=== PATIENT | female | born 1940 | race Caucasian/White ===

== ENCOUNTER → 2019-03-07 | Outpatient (CLI) | payer MEDICARE ==
[~2019-03-07] MED LIST: AMLO5TAB9 PO; ASPI-555 PO; CALC600T12 PO; CHOL200074 PO; METO-408 PO; ROSU10TA28 PO
== END | disposition home or self-care (01) ==
LOC: RAH 14:00
PROVIDERS: ATTEND Nurse Practitioner Adult Health
DX: Z12.31 Encounter for screening mammogram for malignant neoplasm of breast (principal)
CPT/HCPCS: 77067

== ENCOUNTER → 2021-01-29 | Outpatient (CLI) | payer MEDICARE ==
[~2021-01-29] MED LIST changes: +AMLO-257 PO; -AMLO5TAB9 PO; -ASPI-555 PO; +ASPI-556 PO; +CALC-1125 PO; -CALC600T12 PO
== END | disposition home or self-care (01) ==
LOC: RAH 13:00
PROVIDERS: ATTEND Nurse Practitioner Adult Health
DX: Z12.31 Encounter for screening mammogram for malignant neoplasm of breast (principal)
CPT/HCPCS: 77067

== ENCOUNTER → 2021-02-06 | Outpatient (CLI) | payer MEDICARE | END | disposition home or self-care (01) | LOC: RAH 12:11 | PROVIDERS: ATTEND Nurse Practitioner Adult Health | DX: R06.02 Shortness of breath (principal) | CPT/HCPCS: 71046 ==

== ENCOUNTER → 2022-04-14 | Outpatient (CLI) | payer MEDICARE | END | disposition home or self-care (01) | LOC: RAH 14:48 | PROVIDERS: ATTEND Nurse Practitioner Adult Health | DX: Z12.31 Encounter for screening mammogram for malignant neoplasm of breast (principal) | CPT/HCPCS: 77067 ==

== ENCOUNTER → 2023-08-31 | Outpatient (CLI) | payer MEDICARE | END | disposition home or self-care (01) | LOC: RAH 15:05 | PROVIDERS: ATTEND Nurse Practitioner Adult Health | DX: R07.81 Pleurodynia (principal); M19.09 Primary osteoarthritis, other specified site | CPT/HCPCS: 71100 ==